=== PATIENT | female | born 1940 | race Caucasian/White ===

== ENCOUNTER 2021-11-05 12:39 | Emergency (ER) | payer OTHER ==
[~2021-11-05] VITALS: Ht 152.4 cm; Wt 56.2 kg
--- NOTE | 2021-11-05 12:40 | NUR ---
PATIENT BIBA TO BED 4.
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
[2021-11-05] MEDS ORDERED: IBUPROFEN 600 MG TAB PO ONE (13:00)
[2021-11-05] MEDS ORDERED: cephALEXin 500 MG CAP PO ONE (13:00)
[2021-11-05] MEDS ORDERED: BACITRACIN OINT 500 UNITS/GM PKT TP ONE (13:00)
--- NOTE | 2021-11-05 13:07 | NUR ---
Matty ferrera in [facility] - 11/05/21 at 1531 by LEONEL PT TAKEN TO CT
--- NOTE | 2021-11-05 13:18 | NUR ---
XRAY AT BEDSIDE
--- NOTE | 2021-11-05 13:19 | NUR ---
NON ADHERENT DRESSING PLACED ON PT R KNEE.
[2021-11-05] MEDS ORDERED: CEPH-588 PO (13:47)
[2021-11-05] MEDS ORDERED: NAPR-54 PO (13:47)
--- NOTE | 2021-11-05 14:36 | NUR ---
PT RIGHT FOOT 2ND DIGIT, BANDAID PLACED.
[2021-11-05 15:50] VITALS: BP 145/71
--- NOTE | 2021-11-05 15:50 | NUR ---
Patient discharged with v/s stable. Written and verbal after care instructions given and explained. Patient alert, oriented and verbalized understanding of instructions. Ambulatory with steady gait. All questions addressed prior to discharge. ID band removed. Patient advised to follow up with PMD. Rx of KEFLEX, NAPROXEN given. Patient educated on indication of medication including possible reaction and side effects. Opportunity to ask questions provided and answered.
== END 2021-11-05 15:50 | disposition home or self-care (01) ==
LOC: MED 12:39
DX: S83.91XA Sprain of unspecified site of right knee, initial encounter (principal); E11.621 Type 2 diabetes mellitus with foot ulcer; L97.519 Non-pressure chronic ulcer of other part of right foot with unspecified severity; I10 Essential (primary) hypertension; Z79.4 Long term (current) use of insulin; Z79.899 Other long term (current) drug therapy; Z98.890 Other specified postprocedural states; W18.30XA Fall on same level, unspecified, initial encounter; Y93.89 Activity, other specified; Y92.89 Other specified places as the place of occurrence of the external cause; Y99.8 Other external cause status
CPT/HCPCS: 73562; 73700; 99284